=== PATIENT | male | born 1990 | race Caucasian/White ===

== ENCOUNTER 2018-09-21 17:48 | Emergency (ER) | payer OTHER ==
[~2018-09-21] VITALS: Ht 165.1 cm; Wt 61.3 kg
[2018-09-21] MEDS ORDERED: LIDOCAINE 2%,20 ML JEL.PF.APP MM ONE (18:20)
--- NOTE | 2018-09-21 18:30 | NUR ---
LIDOCAINE JELLY APPLIED TO RECTUM. PELVIC CART IN ROOM WITH ANOSCOPE AVAILABLE PER ERP REQUEST. CALL LIGHT WITHIN REACH, WARM BLANKET PROVIDED.
[2018-09-21] MEDS ORDERED: SODIUM CHLORIDE FLUSH 10ML SYR IVF ONE (19:00)
[2018-09-21] MEDS ORDERED: HYDROmorphone 2 MG/ML, 1ML IVPush PRN (19:00)
[2018-09-21] MEDS ORDERED: ONDANSETRON 2MG/ML, 2ML IVPush ONE (19:00)
[2018-09-21 19:12] LABS: BASOPHILS # (AUTO) 0.07 x10^3/uL (0-0.1); BASOPHILS % (AUTO) 1 % (0-1); EOSINOPHILS # (AUTO) 0.14 x10^3/uL (0-0.4); EOSINOPHILS % (AUTO) 2 % (1-7); LYMPHOCYTES # (AUTO) 3.41 x10^3/uL (1-3.4); LYMPHOCYTES % (AUTO) 38 % (22-44); MD NO; MEAN CORPUSCULAR HEMOGLOBIN 30.7 pg (27.5-34.5); MEAN CORPUSCULAR HGB CONC 33.9 g/dL (33.2-36.2); MEAN CORPUSCULAR VOLUME 90.5 fL (81-97); MEAN PLATELET VOLUME 8.8 fL (7.4-10.4); MONOCYTES # (AUTO) 0.98 x10^3/uL (0.2-0.8); MONOCYTES % (AUTO) 11 % (2-9); NEUTROPHILS # (AUTO) 4.31 x10^3/uL (1.8-6.8); NEUTROPHILS % (AUTO) 48 % (42-75); PLATELET COUNT 255 x10^3/uL (130-400); RED BLOOD COUNT 4.69 x10^6/uL (4.38-5.82); RED CELL DISTRIBUTION WIDTH 13.1 % (9.4-14.8)
[2018-09-21 19:24] LABS: ALANINE AMINOTRANSFERASE 37 U/L (12-78); ALBUMIN 3.9 g/dL (3.4-5.0); ANION GAP 5 mmol/L (5-15); CALCIUM 8.5 mg/dL (8.5-10.1); CHLORIDE 105 mmol/L (98-107); CREATININE 0.93 mg/dL (0.7-1.3)
[2018-09-21 19:26] LABS: ALKALINE PHOSPHATASE 85 U/L (45-117); BILIRUBIN,TOTAL 0.8 mg/dL (0.2-1.0)
--- NOTE | 2018-09-21 19:34 | NUR ---
ADD ON ORDERS FOR LABS, CT, MEDS. IV PLACED, LABS DRAWN WITH START.
[2018-09-21] MEDS ORDERED: OMNIPAQUE 350 MG/ML, 100ML BOTTLE ONE (19:55)
--- NOTE | 2018-09-21 20:33 | NUR ---
ALL RESULTS BACK, PT FOR RECHECK.
[2018-09-21 21:05] VITALS: BP 124/68
== END 2018-09-21 21:09 | disposition home or self-care (01) ==
LOC: ED 21:00
DX: K62.89 Other specified diseases of anus and rectum (principal); K59.00 Constipation, unspecified
CPT/HCPCS: 36415; 74177; 80053; 83605; 85025; 99284; Q9967

== ENCOUNTER 2019-01-05 20:11 | Emergency (ER) | payer OTHER ==
[~2019-01-05] VITALS: Ht 165.1 cm; Wt 63.2 kg
--- NOTE | 2019-01-05 20:23 | NUR ---
Patient not in room at this time.
[2019-01-05 20:43] LABS: BASOPHILS # (AUTO) 0.07 x10^3/uL (0-0.1); BASOPHILS % (AUTO) 1 % (0-1); EOSINOPHILS # (AUTO) 0.19 x10^3/uL (0-0.4); EOSINOPHILS % (AUTO) 2 % (1-7); LYMPHOCYTES # (AUTO) 3.27 x10^3/uL (1-3.4); LYMPHOCYTES % (AUTO) 29 % (22-44); MD NO; MEAN CORPUSCULAR HEMOGLOBIN 30.8 pg (27.5-34.5); MEAN CORPUSCULAR HGB CONC 33.8 g/dL (33.2-36.2); MEAN PLATELET VOLUME 8.8 fL (7.4-10.4); MONOCYTES # (AUTO) 1.29 x10^3/uL (0.2-0.8); MONOCYTES % (AUTO) 11 % (2-9); NEUTROPHILS # (AUTO) 6.65 x10^3/uL (1.8-6.8); NEUTROPHILS % (AUTO) 58 % (42-75); PLATELET COUNT 257 x10^3/uL (130-400); RED BLOOD COUNT 4.96 x10^6/uL (4.38-5.82); RED CELL DISTRIBUTION WIDTH 12.7 % (9.4-14.8)
[2019-01-05 20:54] LABS: ANION GAP 6 mmol/L (5-15); CALCIUM 8.8 mg/dL (8.5-10.1); CHLORIDE 104 mmol/L (98-107); CREATININE 1.05 mg/dL (0.7-1.3)
[2019-01-05 21:05] LABS: BILIRUBIN, DIRECT 0.3 mg/dL (0.1-0.2)
[2019-01-05 21:07] LABS: BILIRUBIN,INDIRECT 0.9 mg/dL (0.0-2.0); BILIRUBIN,TOTAL 1.2 mg/dL (0.2-1.0); TOTAL PROTEIN 7.4 g/dL (6.4-8.2)
[2019-01-05 21:21] VITALS: BP 107/58
--- NOTE | 2019-01-05 21:29 | NUR ---
Pt report from prateek blank. This rn to assume care of pt.
[2019-01-05 21:31] LABS: MICROSCOPIC NOT IND
[2019-01-05 21:33] LABS: CULTURE INDICATED? NO
--- NOTE | 2019-01-05 22:07 | NUR ---
All results back. Pt up for recheck.
== END 2019-01-05 22:24 | disposition home or self-care (01) ==
LOC: ED 20:43
DX: R19.7 Diarrhea, unspecified (principal); R10.32 Left lower quadrant pain; F17.210 Nicotine dependence, cigarettes, uncomplicated
CPT/HCPCS: 36415; 71046; 80048; 80076; 81003; 85025; 99284

== ENCOUNTER 2019-03-29 20:23 | Emergency (ER) | payer OTHER ==
[~2019-03-29] VITALS: Ht 165.1 cm; Wt 60.0 kg
--- NOTE | 2019-03-29 21:20 | NUR ---
PT ARRIVED TO ROOM 14 AMBULATORY WITH . PT STATES C/O OF LLQ ABDOMINAL PAIN, BACK PAIN, N/V/D FOR ABOUT 2 MONTHS. PT STATES HE IS HERE BECAUSE HE IS ABOUT TO LOSE HIS JOB OVER HIS SYMPTOMS. PT AAO X 4, VSS, DRESSED IN GOWN AND ATTACHED TO MONITOR. PT APPEARS IN NAD. RESTING ON GURNEY WITH CALL LIGHT WITHIN REACH AND SIDERAIL X [address] PT EDUCATED ON NEED FOR BOTH URINE AND STOOL SAMPLE, AT BEDSIDE.
[2019-03-29] MEDS ORDERED: SULF1TAB24 PO (21:23)
[2019-03-29 21:27] LABS: BASOPHILS # (AUTO) 0.08 x10^3/uL (0-0.1); BASOPHILS % (AUTO) 1 % (0-1); EOSINOPHILS # (AUTO) 0.21 x10^3/uL (0-0.4); EOSINOPHILS % (AUTO) 3 % (1-7); LYMPHOCYTES # (AUTO) 1.72 x10^3/uL (1-3.4); LYMPHOCYTES % (AUTO) 22 % (22-44); MD NO; MEAN CORPUSCULAR HEMOGLOBIN 31.1 pg (27.5-34.5); MEAN CORPUSCULAR HGB CONC 33.6 g/dL (33.2-36.2); MEAN CORPUSCULAR VOLUME 92.6 fL (81-97); MEAN PLATELET VOLUME 8.7 fL (7.4-10.4); MONOCYTES # (AUTO) 1.26 x10^3/uL (0.2-0.8); MONOCYTES % (AUTO) 16 % (2-9); NEUTROPHILS # (AUTO) 4.51 x10^3/uL (1.8-6.8); NEUTROPHILS % (AUTO) 58 % (42-75); PLATELET COUNT 216 x10^3/uL (130-400); RED BLOOD COUNT 4.74 x10^6/uL (4.38-5.82); RED CELL DISTRIBUTION WIDTH 12.8 % (9.4-14.8)
[2019-03-29 21:37] LABS: ALANINE AMINOTRANSFERASE 41 U/L (12-78); ANION GAP 8 mmol/L (5-15); CALCIUM 8.9 mg/dL (8.5-10.1); CHLORIDE 102 mmol/L (98-107); CREATININE 1.46 mg/dL (0.7-1.3)
[2019-03-29 21:40] LABS: ALKALINE PHOSPHATASE 99 U/L (45-117); BILIRUBIN,TOTAL 0.8 mg/dL (0.2-1.0); TOTAL PROTEIN 7.6 g/dL (6.4-8.2)
--- NOTE | 2019-03-29 22:13 | NUR ---
REPORT GIVEN TO KATY CID. CARE TRANSFERRED.
--- NOTE | 2019-03-29 22:17 | NUR ---
REPORT RECEIVED FROM JOSÉ CID.
--- NOTE | 2019-03-29 22:30 | NUR ---
PT IS NOT ABLE TO PROVIDE URINE/STOOL SAMPLE.
--- NOTE | 2019-03-29 23:17 | NUR ---
PT PROVIDED STOOL SAMPLE AT THIS TIME. THIS RN WALKED TO LAB. PT IS NOT ABLE TO PROVIDE URINE SAMPLE YET. URINAL AT BEDSIDE.
[2019-03-29 23:44] LABS: CLOSTRIDIUM DIFFICILE ANTIGEN NEGATIVE; CLOSTRIDIUM DIFFICILE TOXIN NEGATIVE (Negative)
[2019-03-29 23:55] VITALS: BP 120/68
--- NOTE | 2019-03-30 00:07 | NUR ---
Patient given discharge instructions and they have confirmed that they understand the instructions. Patient ambulatory with steady gait.
== END 2019-03-30 00:08 | disposition home or self-care (01) ==
LOC: ED 22:22
DX: K52.1 Toxic gastroenteritis and colitis (principal); R19.7 Diarrhea, unspecified; R11.2 Nausea with vomiting, unspecified; F17.200 Nicotine dependence, unspecified, uncomplicated
CPT/HCPCS: 36415; 80053; 83690; 85025; 87324; 99283

== ENCOUNTER 2019-08-23 15:18 | Emergency (ER) | payer OTHER ==
[~2019-08-23] VITALS: Ht 165.1 cm; Wt 61.8 kg
[~2019-08-23 15:18] MED LIST: SULF1TAB24 PO
[2019-08-23 15:31] VITALS: BP 126/42
--- NOTE | 2019-08-23 16:19 | NUR ---
URINE SAMPLE COLLECTED AND SENT. PT TO RESTROOM AND BACK WITH STRONG INDEPENDENT GAIT. LAB AT BEDSIDE. PT DENIES ANY FURTHER NEEDS OR CONCERNS AT THIS TIME, CALL LIGHT IN REACH.
[2019-08-23 16:26] LABS: BASOPHILS # (AUTO) 0.07 x10^3/uL (0-0.1); BASOPHILS % (AUTO) 1 % (0-1); EOSINOPHILS % (AUTO) 4 % (1-7); LYMPHOCYTES # (AUTO) 3.15 x10^3/uL (1-3.4); LYMPHOCYTES % (AUTO) 39 % (22-44); MD NO; MEAN CORPUSCULAR HEMOGLOBIN 30.8 pg (27.5-34.5); MEAN CORPUSCULAR HGB CONC 33.6 g/dL (33.2-36.2); MEAN CORPUSCULAR VOLUME 91.7 fL (81-97); MEAN PLATELET VOLUME 8.6 fL (7.4-10.4); MONOCYTES # (AUTO) 0.69 x10^3/uL (0.2-0.8); MONOCYTES % (AUTO) 9 % (2-9); NEUTROPHILS % (AUTO) 48 % (42-75); PLATELET COUNT 267 x10^3/uL (130-400); RED BLOOD COUNT 5.07 x10^6/uL (4.38-5.82); RED CELL DISTRIBUTION WIDTH 12.3 % (9.4-14.8)
[2019-08-23 16:28] LABS: MICROSCOPIC NOT IND
[2019-08-23 16:30] LABS: ALANINE AMINOTRANSFERASE 34 U/L (12-78); ALBUMIN 4.2 g/dL (3.4-5.0); ANION GAP 6 mmol/L (5-15); CHLORIDE 104 mmol/L (98-107); CREATININE 1.02 mg/dL (0.7-1.3)
[2019-08-23 16:31] LABS: CULTURE INDICATED? NO
[2019-08-23 16:35] LABS: ALKALINE PHOSPHATASE 117 U/L (45-117); BILIRUBIN,TOTAL 1.6 mg/dL (0.2-1.0)
--- NOTE | 2019-08-23 17:22 | NUR ---
Patient given discharge instructions and they have confirmed that they understand the instructions. Patient ambulatory with steady gait.
== END 2019-08-23 17:24 | disposition home or self-care (01) ==
LOC: ED 15:41
DX: R10.84 Generalized abdominal pain (principal)
CPT/HCPCS: 36415; 80053; 81003; 83690; 85025; 87491; 87591; 99283

== ENCOUNTER → 2019-09-22 | Outpatient (CLI) | payer OTHER | END | disposition home or self-care (01) | LOC: CFH 07:44 | PROVIDERS: ATTEND Nurse Practitioner Family | DX: R94.4 Abnormal results of kidney function studies (principal); R19.7 Diarrhea, unspecified; K64.8 Other hemorrhoids; L29.0 Pruritus ani | CPT/HCPCS: 76700 ==

== ENCOUNTER 2019-12-26 12:30 | Emergency (ER) | payer OTHER ==
[~2019-12-26] VITALS: Ht 165.1 cm; Wt 62.0 kg
[2019-12-26] MEDS ORDERED: MAALOX/HYOSCYAMINE/LIDOCAINE 45 ML BTL PO ONE (13:00)
[2019-12-26] MEDS ORDERED: ONDANSETRON ODT 4 MG PO ONE (13:00)
--- NOTE | 2019-12-26 13:05 | NUR ---
pt presents to ED with c/o diffuse abd cramping, n/v/d x 3 weeks. pt is a&o, resps even and unlabored. pt ambulatory with steady gait to bathroom at this time to provide urine sample.
[2019-12-26] MEDS ORDERED: MAALOX/HYOSCYAMINE/LIDOCAINE 45 ML BTL ONE (13:11)
[2019-12-26] MEDS ORDERED: ONDANSETRON ODT 4 MG ONE (13:11)
[2019-12-26 13:16] LABS: BASOPHILS # (AUTO) 0.04 x10^3/uL (0-0.1); BASOPHILS % (AUTO) 1 % (0-1); EOSINOPHILS # (AUTO) 0.33 x10^3/uL (0-0.4); EOSINOPHILS % (AUTO) 4 % (1-7); LYMPHOCYTES % (AUTO) 25 % (22-44); MD NO; MEAN CORPUSCULAR HEMOGLOBIN 30.9 pg (27.5-34.5); MEAN CORPUSCULAR HGB CONC 33.9 g/dL (33.2-36.2); MEAN CORPUSCULAR VOLUME 91.3 fL (81-97); MEAN PLATELET VOLUME 9.1 fL (7.4-10.4); MONOCYTES # (AUTO) 0.56 x10^3/uL (0.2-0.8); MONOCYTES % (AUTO) 6 % (2-9); NEUTROPHILS # (AUTO) 6.13 x10^3/uL (1.8-6.8); NEUTROPHILS % (AUTO) 65 % (42-75); PLATELET COUNT 233 x10^3/uL (130-400)
--- NOTE | 2019-12-26 13:16 | NUR ---
TASK RN: pt medicated per MAR, NAD, P/W/D, RESP WNL, MAEx4, ABC intact, FCS no SOB
[2019-12-26 13:17] VITALS: BP 127/74
[2019-12-26 13:26] LABS: ALANINE AMINOTRANSFERASE 32 U/L (12-78); ALBUMIN 4.2 g/dL (3.4-5.0); ANION GAP 5 mmol/L (5-15); CALCIUM 9.2 mg/dL (8.5-10.1); CHLORIDE 104 mmol/L (98-107); CREATININE 0.99 mg/dL (0.7-1.3)
[2019-12-26 13:26] LABS: MICROSCOPIC NOT IND
[2019-12-26 13:28] LABS: ALKALINE PHOSPHATASE 120 U/L (45-117); BILIRUBIN,TOTAL 0.7 mg/dL (0.2-1.0); TOTAL PROTEIN 8.3 g/dL (6.4-8.2)
--- NOTE | 2019-12-26 13:37 | NUR ---
PT RESTING ON AFreeze, TEXTING ON PHONE. NADN. AWAITING LABS/UA RESULTS AND DISPO.
[2019-12-26 13:41] LABS: CULTURE INDICATED? NO
--- NOTE | 2019-12-26 13:50 | NUR ---
EDMD VanBibber at bedside to update pt with results and POC.
--- NOTE | 2019-12-26 14:55 | NUR ---
Otf biswas in [facility] - 12/26/19 at 1501 by IZA Patient/Caregiver given discharge instructions and they have confirmed that they understand the instructions. Patient ambulatory with steady gait.
--- NOTE | 2019-12-26 15:02 | NUR ---
Patient/Caregiver given discharge instructions and they have confirmed that they understand the instructions. Patient ambulatory with steady gait.
== END 2019-12-26 15:05 | disposition home or self-care (01) ==
LOC: ED 13:29
DX: R11.2 Nausea with vomiting, unspecified (principal); R19.7 Diarrhea, unspecified; R10.84 Generalized abdominal pain
CPT/HCPCS: 36415; 80053; 81003; 83690; 85025; 99283; Q0162

== ENCOUNTER 2020-07-18 04:45 | Emergency (ER) | payer OTHER ==
[~2020-07-18] VITALS: Ht 165.1 cm; Wt 62.3 kg
--- NOTE | 2020-07-18 04:57 | NUR ---
PT AMBULATES FROM LOBBY TO ROOM WITH STEADY GAIT.
[2020-07-18] MEDS ORDERED: MAALOX/HYOSCYAMINE/LIDOCAINE 45 ML BTL ONE (05:09)
[2020-07-18] MEDS ORDERED: ONDANSETRON ODT 4 MG ONE (05:09)
--- NOTE | 2020-07-18 05:13 | NUR ---
PT MEDICATED PER MAR.
[2020-07-18] MEDS ORDERED: MAALOX/HYOSCYAMINE/LIDOCAINE 45 ML BTL PO ONE (05:30)
[2020-07-18] MEDS ORDERED: ONDANSETRON ODT 4 MG PO ONE (05:30)
[2020-07-18 05:45] LABS: BASOPHILS % (AUTO) 1 % (0-1); EOSINOPHILS % (AUTO) 3 % (1-7); LYMPHOCYTES % (AUTO) 34 % (22-44); MEAN CORPUSCULAR HGB CONC 34.3 g/dL (33.2-36.2); MEAN PLATELET VOLUME 8.7 fL (7.4-10.4); MONOCYTES % (AUTO) 10 % (2-9); NEUTROPHILS % (AUTO) 53 % (42-75); PLATELET COUNT 236 x10^3/uL (130-400); RED BLOOD COUNT 5.08 x10^6/uL (4.38-5.82); RED CELL DISTRIBUTION WIDTH 12.8 % (9.4-14.8)
[2020-07-18 05:46] LABS: MD NO
[2020-07-18 05:55] LABS: ALBUMIN 4.1 g/dL (3.4-5.0); ANION GAP 5 mmol/L (5-15); CHLORIDE 103 mmol/L (98-107)
[2020-07-18 05:59] LABS: ALANINE AMINOTRANSFERASE 37 U/L (12-78); ALKALINE PHOSPHATASE 125 U/L (45-117); BILIRUBIN,TOTAL 1.4 mg/dL (0.2-1.0); CREATININE 0.95 mg/dL (0.7-1.3); TOTAL PROTEIN 7.7 g/dL (6.4-8.2)
[2020-07-18 07:02] LABS: CLOSTRIDIUM DIFFICILE TOXIN NEGATIVE (Negative)
[2020-07-18 07:04] LABS: CLOSTRIDIUM DIFFICILE ANTIGEN POSITIVE
--- NOTE | 2020-07-18 07:05 | NUR ---
ASSUMED CARE OF PATIENT, RECEIVED REPORT FROM ROM CID
[2020-07-18 07:49] VITALS: BP 125/74
== END 2020-07-18 07:51 | disposition home or self-care (01) ==
LOC: ED 06:33
DX: R19.7 Diarrhea, unspecified (principal); R10.13 Epigastric pain; R11.0 Nausea; R53.83 Other fatigue; Z87.11 Personal history of peptic ulcer disease
CPT/HCPCS: 36415; 80053; 83690; 85025; 87324; 87493; 89055; 99283; Q0162

== ENCOUNTER 2020-09-12 11:12 | Emergency (ER) | payer OTHER ==
[~2020-09-12] VITALS: Ht 165.1 cm; Wt 61.6 kg
--- NOTE | 2020-09-12 11:46 | NUR ---
bank consultant note: Pt to room from lobby.
--- NOTE | 2020-09-12 12:51 | NUR ---
IV started. VSS. No other needs.
[2020-09-12] MEDS ORDERED: SODIUM CHLORIDE FLUSH 10ML SYR IVF ONE (13:00)
[2020-09-12] MEDS ORDERED: SODIUM CHLORIDE 0.9% 1,000ML IVBOLUS ONE (13:00)
[2020-09-12] MEDS ORDERED: VANCOMYCIN 50 MG/ML ORAL SUSP PO ONE (13:00)
[2020-09-12 13:01] LABS: BASOPHILS % (AUTO) 1 % (0-1); EOSINOPHILS % (AUTO) 4 % (1-7); LYMPHOCYTES % (AUTO) 31 % (22-44); MEAN CORPUSCULAR HEMOGLOBIN 30.8 pg (27.5-34.5); MEAN CORPUSCULAR HGB CONC 34.4 g/dL (33.2-36.2); MEAN PLATELET VOLUME 8.7 fL (7.4-10.4); MONOCYTES % (AUTO) 9 % (2-9); NEUTROPHILS % (AUTO) 56 % (42-75); PLATELET COUNT 223 x10^3/uL (130-400); RED BLOOD COUNT 4.97 x10^6/uL (4.38-5.82); RED CELL DISTRIBUTION WIDTH 13.3 % (9.4-14.8)
[2020-09-12 13:13] LABS: ALANINE AMINOTRANSFERASE 35 U/L (12-78); ALBUMIN 4.3 g/dL (3.4-5.0); ANION GAP 6 mmol/L (5-15); CHLORIDE 105 mmol/L (98-107); CREATININE 0.93 mg/dL (0.7-1.3)
[2020-09-12 13:14] LABS: MD NO
[2020-09-12 13:15] LABS: ALKALINE PHOSPHATASE 114 U/L (45-117); BILIRUBIN,TOTAL 1.2 mg/dL (0.2-1.0); TOTAL PROTEIN 7.9 g/dL (6.4-8.2)
--- NOTE | 2020-09-12 13:41 | NUR ---
Vanco admin. No other needs.
[2020-09-12 14:01] VITALS: BP 128/65
== END 2020-09-12 14:04 | disposition home or self-care (01) ==
LOC: ED 13:35
DX: R19.7 Diarrhea, unspecified (principal); R11.0 Nausea
CPT/HCPCS: 36415; 80053; 85025; 96360; 99283; J3370; J7030

== ENCOUNTER → 2020-10-22 | Outpatient (CLI) | payer OTHER ==
[2020-10-22 12:49] LABS: BASOPHILS % (AUTO) 1 % (0-1); EOSINOPHILS % (AUTO) 2 % (1-7); LYMPHOCYTES % (AUTO) 27 % (22-44); MD NO; MEAN CORPUSCULAR HEMOGLOBIN 31.1 pg (27.5-34.5); MEAN CORPUSCULAR HGB CONC 34.1 g/dL (33.2-36.2); MEAN PLATELET VOLUME 8.6 fL (7.4-10.4); MONOCYTES % (AUTO) 8 % (2-9); NEUTROPHILS % (AUTO) 62 % (42-75); PLATELET COUNT 244 x10^3/uL (130-400); RED BLOOD COUNT 4.98 x10^6/uL (4.38-5.82); RED CELL DISTRIBUTION WIDTH 13.4 % (9.4-14.8)
[2020-10-22 13:00] LABS: BILIRUBIN, DIRECT 0.2 mg/dL (0.1-0.2)
[2020-10-22 13:02] LABS: BILIRUBIN,INDIRECT 0.5 mg/dL (0.0-2.0); BILIRUBIN,TOTAL 0.7 mg/dL (0.2-1.0); TOTAL PROTEIN 7.4 g/dL (6.4-8.2)
[2020-10-23 15:26] LABS: CRYPTOSPORIDIUM ANTIGEN Negative (Negative)
== END | disposition home or self-care (01) ==
LOC: LAB 12:21
PROVIDERS: ATTEND Internal Medicine Gastroenterology
DX: K58.2 Mixed irritable bowel syndrome (principal); R10.9 Unspecified abdominal pain
CPT/HCPCS: 36415; 80076; 82784; 83516; 83993; 85025; 86255; 87177; 87209; 87328; 87329; 89055

== ENCOUNTER 2021-04-14 12:19 | Emergency (ER) | payer MEDICAID, OTHER ==
[~2021-04-14] VITALS: Ht 165.1 cm; Wt 62.0 kg
[~2021-04-14 12:19] MED LIST changes: +SULF-23 PO; -SULF1TAB24 PO
[2021-04-14 13:44] LABS: ALBUMIN 4.7 g/dL (3.4-5.0); ANION GAP 7 mmol/L (5-15); CALCIUM 9.8 mg/dL (8.5-10.1); CHLORIDE 104 mmol/L (98-107)
[2021-04-14 13:48] LABS: ALANINE AMINOTRANSFERASE 34 U/L (12-78); ALKALINE PHOSPHATASE 117 U/L (45-117); BILIRUBIN,TOTAL 1.7 mg/dL (0.2-1.0); CREATININE 0.94 mg/dL (0.7-1.3)
[2021-04-14 13:54] LABS: BASOPHILS % (AUTO) 1 % (0-1); EOSINOPHILS % (AUTO) 1 % (1-7); LYMPHOCYTES % (AUTO) 21 % (22-44); MEAN CORPUSCULAR HEMOGLOBIN 30.7 pg (27.5-34.5); MONOCYTES % (AUTO) 6 % (2-9); NEUTROPHILS % (AUTO) 72 % (42-75); PLATELET COUNT 252 x10^3/uL (130-400); RED BLOOD COUNT 5.56 x10^6/uL (4.38-5.82); RED CELL DISTRIBUTION WIDTH 12.8 % (9.4-14.8)
--- NOTE | 2021-04-14 14:19 | NUR ---
straw hat presser note: Pt to room from lobby.
[2021-04-14 14:46] LABS: MICROSCOPIC INDICATED
[2021-04-14 16:47] VITALS: BP 122/74
== END 2021-04-14 16:49 | disposition home or self-care (01) ==
LOC: ED 16:40
DX: R10.12 Left upper quadrant pain (principal); R19.7 Diarrhea, unspecified; R11.2 Nausea with vomiting, unspecified; Z87.11 Personal history of peptic ulcer disease; Z88.8 Allergy status to other drugs, medicaments and biological substances
CPT/HCPCS: 36415; 76700; 80053; 81001; 83690; 85025; 99284